=== PATIENT | female | born 2000 | race Caucasian/White ===

== ENCOUNTER 2020-05-04 11:27 | Emergency (ER) | payer OTHER, SELFPAY ==
--- NOTE | 2020-05-04 11:38 | ED.SKABFB ---
HPI - Skin/Abscess/Foreign Bdy General Chief complaint: Skin/Abscess/Foreign Body Stated complaint: pos spider bite Time Seen by Provider: 05/04/20 11:38 Source: patient and RN notes reviewed Mode of arrival: ambulatory Limitations: no limitations History of Present Illness HPI narrative: 20-year-old female presents with concern for red, painful area on her right upper thigh/buttock. Reports she may have gotten bit by a bug. Reports symptoms started approximately 1 week ago. Denies fever, malaise, body aches, nausea, vomiting, diarrhea, difficulty breathing, difficulty swallowing, swollen tongue, swollen lips. Denies drainage from the area. MD complaint: insect bite/sting Related Data Allergies Allergy/AdvReac Type Severity Reaction Status Date / Time Penicillins Allergy Hives Verified 05/04/20 11:43 Review of Systems Review of Systems: Narrative: CONSTITUTIONAL: Denies malaise, chills, sweats, or fever. ENT: Denies swollen tongue, swollen lips, difficulty swallowing CARDIOVASCULAR: Denies chest pain, palpitations, or edema. RESPIRATORY: Denies cough or dyspnea. GASTROINTESTINAL: Denies abdominal pain, nausea, vomiting, diarrhea SKIN: Reports red, tender area on right upper thigh for 1 week MUSCULOSKELETAL: Denies myalgia. All systems reviewed & are unremarkable except as noted in HPI and below PMFSH Social History Social History Gender identity (if verbalized by the patient): Female Comments At time of signature, agree with nursing past medical, surgical, social and family history. There is no relevant family history pertinent to the presenting complaint Exam Narrative: Exam Narrative: GENERAL: Well-appearing, well-nourished, and in no acute distress. HEAD: Normocephalic EYES: PERRLA, conjunctivae clear ENT: Mucous membranes moist. NECK: Supple. No lymphadenopathy. No jugular venous distension, thyromegaly, or carotid bruits. Carotids were easily palpable bilaterally. CHEST: No respiratory distress. Clear to auscultation. No bony deformities, no asymmetry. Speaks in full sentences. HEART: Regular rate and rhythm. No murmur heard. EXTREMITIES: Right lower extremity has normal range of motion, grossly normal strength and sensation. SKIN: Warm, dry. Approximately 5 cm area of erythema, induration, tenderness with no fluctuation, center scab, no drainage. NEURO: Alert and oriented x3. PSYCH: Normal mood and affect Course Course Emergency Course: Patient is aware of diagnosis, understands and agrees to treatment plan. Anticipatory guidance given. Patient agrees to follow-up as directed and is aware of reasons to seek care at the emergency department. Portions of this record may have been created with voice recognition software Vital Signs Vital signs: Vital Signs Temperature 98.6 F 05/04/20 11:42 Pulse Rate 96 05/04/20 11:42 Respiratory Rate 20 05/04/20 11:42 Blood Pressure 148/103 H 05/04/20 11:42 Pulse Oximetry 100 05/04/20 11:42 Temperature 98.6 F 05/04/20 11:42 Pulse Rate 96 05/04/20 11:42 Respiratory Rate 20 05/04/20 11:42 Blood Pressure 148/103 H 05/04/20 11:42 Pulse Oximetry 100 05/04/20 11:42 Reviewed. Patient has been instructed to follow up with her primary care provider within the next week regarding her elevated blood pressure today. MDM - Skin/Abscess/Foreign Bdy MDM Narrative Medical decision making narrative: Does not appear at this time to be erythema multiforme, bullous, SJS, TEN; no evidence at this time to suggest RMSF, endocarditis or Lyme disease; patient looks well, nontoxic and is tolerating oral intake; no neurologic signs or symptoms; no headache, photophobia or neck pain; afebrile; appropriate for initial outpatient treatment; discussed the importance of follow-up, patient agrees; question, viral exanthema, contact dermatitis, allergic dermatitis, eczema, urticaria, cellulitis, local reaction. No soft palate or uvula edema, no tongue, lip edema or oth
[2020-05-04 11:42] VITALS: BP 148/103; PULSE 96; RESP 20; TEMP 37; O2SAT 100
== END 2020-05-04 11:50 | disposition home or self-care (01) ==
PROVIDERS: Emergency Provider Nurse Practitioner; PCP Physician Assistant
DX: S30.860A Insect bite (nonvenomous) of lower back and pelvis, initial encounter (principal); W57.XXXA Bitten or stung by nonvenomous insect and other nonvenomous arthropods, initial encounter
CPT/HCPCS: 99213; G0463

== ENCOUNTER 2022-12-20 08:19 | Emergency (ER) | payer OTHER, SELFPAY ==
[2022-12-20 08:30] VITALS: BP 159/103; PULSE 112; RESP 18; TEMP 37.8; O2SAT 98
--- NOTE | 2022-12-20 08:44 | ED.GENADULT ---
HPI - General Adult General Chief complaint: Upper Respiratory Infection Stated complaint: cold cough Source: patient Mode of arrival: ambulatory Limitations: no limitations History of Present Illness HPI narrative: Patient presents for evaluation of sick symptoms for last week. Symptoms include sinus congestion, mucopurulent discharge from the nares, sore throat, wheezing, productive cough of yellow sputum. She denies any fever, chills, nausea, vomiting, diarrhea. 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 No personal history of COVID. She does not smoke. She tried taking ibuprofen and Mucinex for her symptoms. She took a home COVID test yesterday which was negative. Related Data Home Medications Medication Instructions Recorded Confirmed norgestimate-ethinyl estradiol 1 tablet PO DAILY 12/20/22 12/20/22 0.18 mg/0.215mg/0.25mg-35 mcg(28)tablet Allergies Allergy/AdvReac Type Severity Reaction Status Date / Time Penicillins Allergy Hives Verified 12/20/22 08:33 Review of Systems Review of Systems: CONSTITUTIONAL: Denies fever, chills, or sweats. EYES: Denies visual changes, redness, or discharge. ENT: Reports sinus congestion, mucopurulent discharge from the nares, sore throat CARDIOVASCULAR: Denies chest pain, palpitations, or edema. RESPIRATORY: Reports productive cough of yellow sputum with SOB. GASTROINTESTINAL: Denies abdominal pain, nausea, vomiting, or diarrhea. GENITOURINARY: Denies dysuria or hematuria. SKIN: Denies rash or itching. MUSCULOSKELETAL: Denies back pain, joint pain, or myalgia. NEUROLOGIC: Denies headache, numbness, dizziness, or weakness. PSYCHIATRIC: Denies anxiety or depression. [facility] Past Medical History Medical History No pertinent past medical history Surgical History Surgical History No pertinent past surgical history Family History Family History Mother Family history non-contributory Social History Social History Smoking status: Never smoker Substance use: never Living arrangements: with family Gender identity (if verbalized by the patient): Female Sexual Orientation (if Verbalized by the Patient): Straight or Heterosexual Spiritual care concerns: No Exam Narrative: GENERAL: Well-appearing, well-nourished, and in no acute distress. HEAD: Normocephalic, atraumatic. EYES: PERRLA and EOMI. ENT: Nares clear, no rhinorrhea or epistaxis. Mucous membranes moist. Oropharynx without tonsillar hypertrophy exudate or other lesions. There is posterior pharyngeal erythema. Bilateral TMs pearly loco nonbulging NECK: Supple. No adenopathy or masses. No carotid bruits or JVD CHEST: Clear to auscultation. No respiratory distress. No wheezes rales or rhonchi HEART: Regular rate and rhythm. No murmur heard. Normal peripheral pulses. ABDOMEN: Soft, nontender, nondistended, normal active bowel sounds. EXTREMITIES: Normal range of motion. No edema. SKIN: Warm, dry, no rash. NEURO: No focal deficits. Alert and oriented x3. PSYCH: Normal mood and affect. Course Course Emergency Course: This is a 22 old female who presented for evaluation of sick symptoms. She took a home COVID test yesterday which was negative. She meets criteria for ABRS based upon duration of times for which she has been symptomatic and quality of her nasal discharge. Will dc with doxycycline as she has a PCN allergy, as well as prednisone. Declined albuterol inhaler. Follow-up with primary provider. Go to the ER for worsening symptoms. Patient in agreement with plan of care Level of Care: Express Care Visit Vital Signs Vital signs: Vital Signs Temperature 37.8 C H 12/20/22 08:30 Pulse Rate 112 H 12/20/22 08:30
== END 2022-12-20 08:46 | disposition home or self-care (01) ==
PROVIDERS: Emergency Provider Nurse Practitioner
DX: J32.9 Chronic sinusitis, unspecified (principal)
CPT/HCPCS: 99213; G0463

== ENCOUNTER 2023-05-12 11:04 | Emergency (ER) | payer OTHER, SELFPAY ==
[2023-05-12 11:19] VITALS: BP 147/92; PULSE 58; RESP 16; TEMP 36.8; O2SAT 99
--- NOTE | 2023-05-12 11:25 | ED.FEMALEGU ---
HPI - Female Genitourinary General Chief complaint: Urogenital-Female Stated complaint: uti symptoms Time Seen by Provider: 05/12/23 11:25 Source: patient Mode of arrival: ambulatory Limitations: no limitations History of Present Illness HPI Narrative: 23-year-old female presents with complaint of urinary frequency, urgency, dysuria for 3-4 days. Afebrile. Denies nausea vomiting. Last menstrual period approximately 1 year ago. Has been taking [id number] azo to treat symptoms. recently got back from vacation in [place]. All systems reviewed and negative except as noted above. Related Data Home Medications Medication Instructions Recorded Confirmed norgestimate-ethinyl estradiol 1 tablet PO DAILY 12/20/22 05/12/23 0.18 mg/0.215mg/0.25mg-35 mcg(28)tablet Allergies Allergy/AdvReac Type Severity Reaction Status Date / Time Penicillins Allergy Hives Verified 05/12/23 11:23 Review of Systems Review of Systems: CONSTITUTIONAL: Denies fever, chills, or sweats. EYES: Denies visual changes, redness, or discharge. ENT: Denies rhinorrhea, congestion, sore throat, or otalgia. CARDIOVASCULAR: Denies chest pain, palpitations, or edema. RESPIRATORY: Denies cough or dyspnea. GASTROINTESTINAL: Denies abdominal pain, nausea, vomiting, or diarrhea. GENITOURINARY: Reports urgency, frequency, dysuria dysuria. Denies hematuria. SKIN: Denies rash or itching. MUSCULOSKELETAL: Denies back pain, joint pain, or myalgia. NEUROLOGIC: Denies headache, numbness, or weakness. PSYCHIATRIC: Denies anxiety or depression. All other systems reviewed are negative, except as documented in HPI. [facility] Past Medical History Medical History No pertinent past medical history Surgical History Surgical History No pertinent past surgical history Family History Family History Mother Family history non-contributory Social History Social History Smoking status: Never smoker Substance use: never Living arrangements: with family Gender identity (if verbalized by the patient): Female Sexual Orientation (if Verbalized by the Patient): Straight or Heterosexual Spiritual care concerns: No Comments At time of signature, agree with nursing past medical, surgical, social and family history. There is no relevant family history pertinent to the presenting complaint. Exam Narrative: GENERAL: This is a well-nourished, well-developed patient, in no apparent distress. HEAD: normocephalic, atraumatic. EYES: PERRL. Sclera clear/white. Vision is grossly intact. EARS: External ears normal NOSE: External nose normal NECK: Neck supple, non-tender without lymphadenopathy, masses or thyromegaly. CARDIOVASCULAR: Regular rate and rhythm without murmurs, gallops, or rubs. RESPIRATORY: Clear to auscultation. Breath sounds equal bilaterally. No wheezes, rales, or rhonchi. SKIN: warm, Dry, intact with no suspicious lesions or rash, good texture and turgor. NEURO: awake, alert, and oriented to person, place and time. There were no obvious focal neurologic abnormalities. EXTREMITIES: No joint tenderness, effusion, or edema noted. Course Course Level of Care: Express Care Visit Vital Signs Vital signs: Vital Signs Temperature 36.8 C 05/12/23 11:19 Pulse Rate 58 L 05/12/23 11:19 Respiratory Rate 16 05/12/23 11:19 Blood Pressure 147/92 H 05/12/23 11:19 Pulse Oximetry 99 05/12/23 11:19 Oxygen Delivery Room Air 05/12/23 11:19 Temperature 36.8 C 05/12/23 11:19 Pulse Rate 58 L 05/12/23 11:19 Respiratory Rate 16 05/12/23 11:19 Blood Pressure 147/92 H 05/12/23 11:19 Pulse Oximetry 99 05/12/23 11:19 Oxygen Delivery Room Air 05/12/23 11:19 review
== END 2023-05-12 11:34 | disposition home or self-care (01) ==
PROVIDERS: Emergency Provider Nurse Practitioner Family; PCP Physician Assistant
DX: N39.0 Urinary tract infection, site not specified (principal)
CPT/HCPCS: 81003; 87077; 87086; 87186; 99213; G0463

== ENCOUNTER 2023-11-17 15:51 | Outpatient (CLI) | payer OTHER, SELFPAY ==
--- NOTE | ~2023-11-17 | US_ITS ---
EXAMINATION: US OB <= 14 weeks fetus DATE: 11/17/2023 16:20 INDICATION: Encounter for screening for uncertain dates assess for viability during first t rimester . TECHNIQUE: Real-time pelvic ultrasound utilizing both a transvaginal and transabdominal probe was pe rformed. The interpreting radiologist was not present for the study. COMPARISON: None. FINDINGS: The uterus measures 10.2 x 6.5 x 6.8 cm. There is an intrauterine gestational sac. A yolk sac and fe dylan pole are identified. The crown rump length measures 2.6 cm, which correlates with an estimated ge stational age of 9 weeks and 2 days. heart motion is identified measuring 175 beats per minute (bpm) by M-mode Doppler. The right ovary measures 3.3 x 2.0 x 2.5 cm. The left ovary measures 3.3 x 1.9 x 2.1 cm. Vascular kaela w identified in both ovaries on color Doppler. There is no free fluid in the pelvis. IMPRESSION: 1. Single living fetus with heart of 175 bpm. 2. Gestational age by ultrasound of 9 weeks 2 day(s) +/- 6 day(s) with ultrasound estimated date of delivery (DULCE MARIA) of 06/19/2024. Reviewed, dictated and finalized at location A. [employer]URES IMPRESSION: 1. Single living fetus with heart of 175 bpm. 2. Gestational age by ultrasound of 9 weeks 2 day(s) +/- 6 day(s) with ultraso und estimated date of delivery (DULCE MARIA) of 06/19/2024.
== END 2023-11-17 15:52 ==
PROVIDERS: PCP Advanced Practice Midwife; Visit Provider Advanced Practice Midwife
DX: Z36.87 Encounter for antenatal screening for uncertain dates (principal); O36.80X0 Pregnancy with inconclusive fetal viability, not applicable or unspecified; Z3A.00 Weeks of gestation of pregnancy not specified
CPT/HCPCS: 76801

== ENCOUNTER 2024-01-20 15:53 | Outpatient (CLI) | payer OTHER, SELFPAY ==
--- NOTE | ~2024-01-20 | US_ITS ---
EXAMINATION: US OB /maternal detail DATE: 01/20/2024 16:33 INDICATION: anatomic survey. TECHNIQUE: Real-time ultrasound of the pelvis was performed. COMPARISON: Ultrasound 11/17/2023 FINDINGS: There is a single living fetus in vertex presentation. The placenta is posterior, 1.6 cm from the ce rvix. heart rate is 151 beats per minute (bpm). The cervical length is 3.0 cm on transabdominal images, which is normal. The amniotic fluid volume is subjectively normal. The following biometric data were obtained: Biparietal diameter (BPD): 3.9 cm; head circumference (HC): 15.3 cm; abdominal circumference (AC): 12 .4 cm; femur length (FL): 2.6 cm. These measurements are concordant. Estimated weight is 220 g +/- 33 g, which correlates with the 23rd percentile when 06/21/24 is u sed as estimated date of delivery. As single measurements, these parameters are each equal to the following estimated gestational ages: BPD: 18 weeks 0 days. HC: 18 weeks 2 days. AC: 18 weeks 0 days. FL: 18 weeks 0 days. estimated gestational age based solely on measurements from this exam is 18 weeks 1 days +/- 1 weeks 2 days. The cerebral ventricles, cerebellum, cisterna magna, nuchal fold, lip, and visualized portions of the spine are normal. The heart is normal. The diaphragm, stomach, kidneys, and bladder are normal. Ther e are two umbilical arteries to yield a 3-vessel cord. The cord insertion is normal. IMPRESSION: 1. Single living fetus in vertex presentation. 2. Estimated weight is 220 g +/- 33 g, which correlates with the 23rd percentile when 06/21/24 is used as estimated date of delivery. Note that estimated date of delivery based on the ultrasound f rom 11/17/2023 would be 06/19/24. 3. Normal anatomic survey. Reviewed, dictated and finalized at location E. IMPRESSION: 1. Single living fetus in vertex presentation. 2. Estimated weight is 220 g +/- 33 g, which correlates with the pe rcentile when 06/21/24 is used as estimated date of delivery. Note that estimate d date of delivery based on the ultrasound from 11/17/2023 would be 06/19/24. 3. Normal anatomic survey.
== END 2024-01-20 15:54 ==
LOC: MICIMG 15:54
PROVIDERS: PCP Obstetrics & Gynecology Gynecology; Visit Provider Obstetrics & Gynecology Gynecology
DX: Z36.9 Encounter for antenatal screening, unspecified (principal)
CPT/HCPCS: 76805

== ENCOUNTER 2024-02-25 10:20 | Outpatient (CLI) | payer BC, SELFPAY ==
--- NOTE | ~2024-02-25 | US_ITS ---
EXAMINATION: US OB limited DATE: 02/25/2024 10:40 INDICATION: Low-lying placenta TECHNIQUE: Real-time ultrasound of the pelvis was performed. The interpreting radiologist was not pre sent for the study. COMPARISON: 01/20/2024 FINDINGS: There is a single living fetus in vertex presentation. The placenta is posterior and not low-lying w ith caudal margin 7 cm from the region of the internal cervical os. The cervix is poorly visualized o n the transabdominal imaging with cervical length of approximately 3.5 cm. heart rate is 146 be ats per minute (bpm). The amniotic fluid volume is subjectively normal. IMPRESSION: 1. Single living fetus in vertex presentation with heart rate of 146 bpm. 2. Posterior placenta which is not low-lying with caudal margin 7 cm from the internal cervical os. Reviewed, dictated and finalized at location A. IMPRESSION: 1. Single living fetus in vertex presentation with heart rate of 146 bpm . 2. Posterior placenta which is not low-lying with caudal margin 7 cm from the i nternal cervical os.
== END 2024-02-25 10:21 ==
PROVIDERS: PCP Advanced Practice Midwife; Visit Provider Advanced Practice Midwife
DX: O44.42 Low lying placenta NOS or without hemorrhage, second trimester (principal)
CPT/HCPCS: 76815

== ENCOUNTER 2024-03-20 12:35 | Outpatient (RCR) | payer BC, SELFPAY ==
[2024-03-20 13:08] VITALS: BP 127/78; PULSE 87
== END 2024-06-18 23:59 | disposition home or self-care (01) ==
LOC: ANHOBOP 12:35
PROVIDERS: PCP Advanced Practice Midwife; Visit Provider Obstetrics & Gynecology Gynecology
DX: O36.8120 Decreased fetal movements, second trimester, not applicable or unspecified (principal); Z3A.27 27 weeks gestation of pregnancy
CPT/HCPCS: 59025

== ENCOUNTER 2024-06-20 21:35 | Inpatient (IN) | payer BC, SELFPAY ==
[2024-06-20 23:06] VITALS: PULSE 82; O2SAT 99
[2024-06-20 23:11] VITALS: PULSE 87; O2SAT 100
[2024-06-20 23:16] VITALS: PULSE 90; O2SAT 100
[2024-06-20 23:21] VITALS: PULSE 90; O2SAT 99
[2024-06-20 23:22] VITALS: TEMP 37.1
[2024-06-21] VITALS (173 sets, daily range): BP systolic 58–178; BP diastolic 24–99; PULSE 54–125; RESP 16–18; TEMP 36.9–37.4; O2SAT 82–100; BMI 36.8
[2024-06-21 00:14] LABS: Basophils Absolute Auto 0.1 K/mm3 (0.0-0.1); Basophils Percent Auto 0.3 % (0.2-1.2); Eosinophils Absolute Auto 0.1 K/mm3 (0-0.3); Eosinophils Percent Auto 0.5 % (0-4.4); Hematocrit 40.5 % (37.0-47.0); Hemoglobin 13.8 g/dL (12.0-15.0); Immature Granulocyte Absolute 0.47 K/mm3 (0.00-0.031); Immature Granulocyte Percent A 2.5 % (0-0.5); Lymphocytes Absolute Auto 2.82 K/mm3 (0.9-3.2); Lymphocytes Percent Auto 14.8 % (18.3-44.2); Mean Corpuscular HGB Conc 34.1 g/dl (32-36); Mean Platelet Volume 9.6 fl (7.4-10.4); Monocytes Absolute Auto 0.9 K/mm3 (0.1-0.6); Monocytes Percent Auto 4.6 % (2.6-8.5); Neutrophils Absolute Auto 14.8 K/mm3 (1.3-6.7); Neutrophils Percent Auto 77.3 % (45.5-73.1); Platelet Count Result 328 k/mm3 (150-375); Red Blood Count 4.45 M/mm3 (4.2-5.4); Red Cell Distribution Width 12.8 % (11.5-14.5); White Blood Count 19.1 K/mm3 (4.5-10.0)
[2024-06-21] MEDS: LACTATED RINGERS 1,000 ML 999 ML IV CONT ×2 (00:18→09:54)
[2024-06-21 01:01] LABS: HIV 1/2 Ab P24 Ag Result Negative (Negative)
[2024-06-21 01:56] LABS: Rapid Plasma Reagin Non-Reactive (NonReactive)
--- NOTE | 2024-06-21 02:34 | WPDANESEPP ---
Anes - Eval Pre Procedure Procedure: Labor Epidural Date/Time: 06/21/24 02:34 Surgeon: Reuben Preop Diagnosis: Labor Pain Pre Op Diagnosis: Contractions Patient Data Age: 24 Gender: F Height: Weight: Last Vital Signs Temp 37.1 C 06/20/24 23:22 Pulse 55 L 06/21/24 02:32 BP 104/53 L 06/21/24 02:32 Pulse Ox 98 06/21/24 02:29 Allergies Allergy/AdvReac Type Severity Reaction Status Date / Time Penicillins Allergy Hives Verified 05/29/24 14:28 Home Medications Medication Instructions Recorded Confirmed Type aspirin 81 mg tablet 81 mg PO DAILY 05/29/24 05/29/24 History cholecalciferol (vitamin D3) 125 125 mcg PO DAILY 05/29/24 05/29/24 History mcg (5,000 unit) tablet (Vitamin D3) ferrous sulfate 325 mg (65 mg 325 mg PO DAILY 05/29/24 05/29/24 History iron) tablet vits no.126-ferrous fum 1 tablet PO DAILY 05/29/24 05/29/24 History 28 mg iron-folic acid 800 mcg tablet (Classic ) Laboratory Tests 06/20/24 06/20/24 06/21/24 23:44 23:45 01:03 WBC 19.1 H K/mm3 (4.5-10.0) RBC 4.45 M/mm3 (4.2-5.4) Hgb 13.8 g/dL (12.0-15.0) Hct 40.5 % (37.0-47.0) MCV 91.0 fl (80-100) MCH 31.0 pg (26-34) MCHC 34.1 g/dl (32-36) RDW 12.8 % (11.5-14.5) Plt Count 328 k/mm3 (150-375) MPV 9.6 fl (7.4-10.4) Immature Gran % (Auto) 2.5 H % (0-0.5) Neut % (Auto) 77.3 H % (45.5-73.1) Lymph % (Auto) 14.8 L % (18.3-44.2) [place] % (Auto) 4.6 % (2.6-8.5) Eos % (Auto) 0.5 % (0-4.4) Baso % (Auto) 0.3 % (0.2-1.2) Lymph # (Auto) 2.82 K/mm3 (0.9-3.2) [place] # (Auto) 0.9 H K/mm3 (0.1-0.6) Eos # (Auto) 0.1 K/mm3 (0-0.3) Baso # (Auto) 0.1 K/mm3 (0.0-0.1) Abs Immat Gran (auto) 0.47 H K/mm3 (0.00-0.031) Absolute Neuts (auto) 14.8 H K/mm3 (1.3-6.7) Absolute Nucleated RBC 0.000 K/mm3 (0.0-0.012) Nucleated RBC % 0.0 % (0.0-0.2) RPR Non-reactive (NonReactive) HIV 1&2 Ab/P24 Ag 4thGn Negative (Negative) Blood Type A Positive Antibody Screen Negative : gestational age (DULCE MARIA 06/19/24, ) Patient hx anesthesia problems: none Family hx anesthesia problems: none Results Review: All pre-operative results and documents have been reviewed as part of the pre-operative evaluation. [facility] Past Medical History Medical History No pertinent past medical history Surgical History Surgical History No pertinent past surgical history Family History Family History Mother Family history non-contributory Social History Social History Smoking status: Never smoker Substance use: never Living arrangements: with family Gender identity (if verbalized by the patient): Female Sexual Orientation (if Verbalized by the Patient): Straight or Heterosexual Spiritual care concerns: No Exam Day of Procedure 06/21/24 02:34 Patient weight: normal Heart: regular rate and rhythm Lungs: normal air movement Airway: Mallampati scale class II Neurological: alert and oriented
--- NOTE | 2024-06-21 02:55 | LDADM ---
This patient, Daina Hough, was admitted to Labor/Delivery/Recovery 108 on 06/20/24 at 21:35. Plans for labor, pain management and were discussed with patient. Patient/family oriented to hospital policies and general routines including ID bracelet, bed and alarms, visiting hours, pain management, procedures, bathroom and other care routines, personal items, smoking policy, room service/diet and guest tray routines, infant security routines, and visiting hours. Patient/Family are encouraged to report perceived risks to care and to ask questions if they do not understand what they are told or what they should do. See OBIX for further documentation.
--- NOTE | 2024-06-21 07:49 | WPDOBADMIT ---
Obstetrics - Admit Note Admission Note: record reviewed. No pertinent additions to the history and/or any subsequent changes in the physical findings that are not consistent with the expected course of the were found. Additions to the history and/or subsequent changes in the physical findings follow. Admitted overnight after SROM at home.
--- NOTE | 2024-06-21 07:49 | PM.OBPNLAB ---
Pain Control Date/time seen: 06/21/24 0600 Comments: Sign out received from Dr. Alexis. Care assumed
--- NOTE | 2024-06-21 07:50 | PM.OBPNLAB ---
Pain Control Date/time seen: 06/21/24 07:30 Pain control: tolerating well and epidural Pelvic Exam Comments: 9 cm per RN exam. Contractions Monitor mode: External Contraction pattern: Regular Contraction intensity: Strong/Firm Status status: Category ll Comments: Reassured by moderate variability and accelerations. Assessment and Plan Assessment: active labor Plan: continuous present management Comments: Anticipate vaginal . Dr. Alexis updated.
[2024-06-21] MEDS: OXYTOCIN 30 UNITS/NS 500 ML 30 UNITS/500 ML BAG 999 UNITS IV CONT (10:43)
[2024-06-21] MEDS: OXYTOCIN 30 UNITS/NS 500 ML 30 UNITS/500 ML BAG 125 UNITS IV CONT (11:05)
--- NOTE | 2024-06-21 11:09 | PM.OBPRVD ---
OB - Vaginal Delivery Note Procedure Delivery date: 06/21/24 Induction method: None Delivery monitor: External FHT and External Uterine Route of delivery: Episiotomy description: None Laceration Description: Perineal - 2nd Degree and Labial (right) Delivery repair: vicryl Specimen: No Quantitative Blood Loss (ml): 250 Anesthesia type: Epidural Disposition: Floor Complications: No immediate complications Narrative: Daina Arrived from home after spontaneous rupture membranes. She had spontaneous contractions and changed her cervix to complete dilation. She pushed very well with contractions and brought the head to complete crown. With the next push the remainder of the head was delivered and a loose nuchal cord was identified. Excellent restitution was observed and both the anterior and spontaneous shoulders delivered easily. The nuchal cord was reduced and the was placed on the maternal abdomen and dried and stimulated by the nursery staff. After 1 minute of life, cord was doubly clamped and cut. Cord blood, cord gases, and cord segment were obtained. A second-degree perineal laceration that extended into the right labia was repaired in usual fashion. There was excellent hemostasis and uterine tone. All delivery counts correct. Mother and baby skin to skin in the delivery room. Baby Date of : 06/21/24 Time of : 10:37 Gestational Age by Date: 40 (40 weeks 2 days) Infant gender: Male Weight (pounds): 0 (unavailable at time of note) presentation: vertex position: Right Occiput Anterior Placenta delivery description: Spontaneous and Normal Configuration Cord Vessel Description: 3 Vessels, Nuchal Cord and Delayed Cord Clamping score one minute: 7 score five minutes: 9
--- NOTE | 2024-06-21 11:13 | PM.OBDSVD ---
DS: Admitting Diagnosis Discharge Date DC 06/23/[address] Alexis Admitting Diagnosis 24 y.o. at 40 weeks 2 days SROM Labor at term Rubella Non-Immune DS: Discharge Diagnosis Discharge Diagnosis (1) (normal spontaneous vaginal delivery): Code(s): O80 - Encounter for full-term uncomplicated delivery Status: Acute (2) Rubella non-immune status, delivered, current hospitalization: Code(s): O99.892 - Other specified diseases and conditions complicating childbirth; Z28.39 - Other underimmunization status Status: Acute Assessment and Plan: Plan MMR prior to DC (3) Patient is a currently breast-feeding mother: Code(s): Z39.1 - Encounter for care and examination of lactating mother Status: Acute OB - DS: Summary Hospital Course Hospital Course: Uncomplicated OB Procedures : Ultrasound OB Procedures Intrapartum: Spontaneous Vag Delivery OB Procedures: : Rubella lg Peripartum Data Delivery Method: Natural Vaginal Laceration Description: Perineal - 2nd Degree and Labial (right) Episiotomy description: None complications: none Time Spent with Patient Time attestation: Total time spent providing and/or coordinating discharge services: DS: Data Data Completed and Pending Labs on day of discharge: Labs from last 24 hours 06/21/24 06/20/24 06/20/24 01:03 23:45 23:44 WBC 19.1 H RBC 4.45 Hgb 13.8 Hct 40.5 MCV 91.0 MCH 31.0 MCHC 34.1 RDW 12.8 Plt Count 328 MPV 9.6 Immature Gran % (Auto) 2.5 H Neut % (Auto) 77.3 H Lymph % (Auto) 14.8 L Hughes % (Auto) 4.6 Eos % (Auto) 0.5 Baso % (Auto) 0.3 Lymph # (Auto) 2.82 Hughes # (Auto) 0.9 H Eos # (Auto) 0.1 Baso # (Auto) 0.1 Abs Immat Gran (auto) 0.47 H Absolute Neuts (auto) 14.8 H Absolute Nucleated RBC 0.000 Nucleated RBC % 0.0 RPR Non-reactive HIV 1&2 Ab/P24 Ag 4thGn Negative Blood Type A Positive Antibody Screen Negative Discharge Plan Discharge Attending physician on discharge: Melanie Alexis Consulting providers: Melody Pantoja; Annabella Denis Discharging Clinician: Melanie Alexis Anticipated Discharge Date/Time: 06/23/24 11:15 Patient Disposition: Home, Self-Care Activity: may shower and pelvic rest Diet: regular Discharge Instructions: Education: Mom and Baby Guide Given to: Mother Follow-Up: Call your delivering provider's office for an appointment to be seen in: 6 Weeks Mom and baby should come to the [facility] for the follow-up appointment. Appointment Date/Time: Monday, June 24, 2024 at 11:00 a.m. What to expect at your follow-up visit: Blood Pressure Check Physical Assessment Call [phone] if you are unable to keep your appointment time. BREAST CARE: * Wear a snug supportive bra. * For engorgement discomfort: Breast Feeding: * Apply warm moist washcloths * Express milk as needed to relieve engorgement * Wear loose clothing Bottle Feeding: * May apply ice packs * For sore nipples: * Identify correct latch-on * Apply warm moist washcloths before and after nursing * Air dry nipples after nursing * May apply Lansinoh cream to nipples EPISIOTOMY/PERINEAL CARE: * Until bleeding stops, use your claudine bottle after urinating * Change your pad frequently throughout the day * You may take sitz baths several times a day (fill your bathtub with warm water and soak for 20 minutes.) Do NOT bathe in the water * No tub baths until seen by your physician - You may shower ACTIVITY: * Rest as much as possible. * Do not exercise or lift anything heavier than your baby (such as laundry or other children.) * Avoid stairs or driving as much as possible. * Do not put anything into the vagina. No douching, tampons, or sexual activity unti
[2024-06-21] MEDS: ACETAMINOPHEN 325 MG TABLET 650 MG PO ×2 (12:06→18:45)
[2024-06-21] MEDS: IBUPROFEN 600 MG TABLET PO ×2 (12:06→18:45)
[2024-06-21] MEDS: BENZOCAINE 20% AER SPR (*SP) 56 GM CAN 1 SPRAY TOPICAL (13:05)
[2024-06-21] MEDS: WITCH HAZEL 40 PADS 1 PAD TOPICAL (13:05)
--- NOTE | 2024-06-21 13:35 | OBPPTRN ---
Patient transferred to post room #277 via wheelchair. Support person present. Oriented to unit, room, information board, rooming in, admission packet and security measures. Patient verbalizes understanding.
--- NOTE | 2024-06-21 15:35 | PC.NURSE ---
1420: To patient room to assist with . We put baby in cross cradle hold on the left but he would either cry or sleep. He tried to latch a few times before he stopped giving any feeding cues. Advised mom that we may just need to give him a little more time as he seems sleepy right now. Will try again in half hour to 30 minutes. 1535: Returned to patient room to assist with . Parents were trying to get baby to latch and he was very fussy. Mom was using the cross cradle hold appropriately and baby was trying to latch but he was not able to maintain the latch for more than one suck. Mom was agreeable to switch to the football position to see if it would assist with baby maintaining the latch better. Baby latched after a few tries and was suckling vigorously. He had frequent swallows and mom was taught how to listen for good swallowing and observe appropriate sucking. We thoroughly reviewed how to get and observe a deep latch. Baby alignment and positioning reviewed and mom was very receptive to the education shared. Encouraged mom to keep baby at the breast for as long as he likes, and then to try to burp and offer the other breast if baby is still showing feeding cues. Parents will call out for further assistance as needed. Reported to primary RN.
[2024-06-21] MEDS: DOCUSATE SODIUM 100 MG CAPSULE PO (16:12)
[2024-06-22] MEDS: ACETAMINOPHEN 325 MG TABLET 650 MG PO ×3 (00:47→18:59)
[2024-06-22] MEDS: IBUPROFEN 600 MG TABLET PO ×3 (00:48→18:59)
[2024-06-22 04:49] LABS: Hemoglobin 9.8 g/dL (12.0-15.0)
[2024-06-22 05:36] VITALS: BP 124/74; PULSE 87; RESP 18; TEMP 36.9
--- NOTE | 2024-06-22 07:48 | PM.OBPNVD ---
OB - PN: Subj Subjective Date/time seen: 06/22/24 07:48 Patient comments: no complaints and pain well controlled baby status: doing well OB - PN: Obj Data Labs 06/22/24 04:29 Labs: Laboratory Results - last 24 hr 06/22/24 04:29 Hgb 9.8 L D Hct 30.0 L OB - PN A/P Plan day: 1 Plan: routine care Time Spent With Patient Time: Total time spent is greater than 50% in coordination of care (as documented) at patient's floor/unit and/or counseling patient: Exam : Bimanual exam- vagina & uterus: other (Uterus firm, nt @U)
[2024-06-22 09:00] VITALS: BP 124/71; PULSE 77; RESP 16; TEMP 36.6; O2SAT 100
[2024-06-22] MEDS: DOCUSATE SODIUM 100 MG CAPSULE PO ×2 (09:37→17:20)
[2024-06-22] MEDS: CHOLECALCIFEROL 5,000 UNITS TABLET 5000 UNITS BY MOUTH (09:37)
[2024-06-22] MEDS: MULTIVIT/MIN/PREN/FOL AC/IRON TABLET 1 TAB PO (09:37)
[2024-06-22] MEDS: POLYSACCHARIDE IRON COMPLEX 150 MG CAPSULE PO ×2 (09:37→17:20)
[2024-06-22] MEDS: FERROUS SULFATE 325 MG TABLET DR BY MOUTH (09:37)
[2024-06-22 20:27] VITALS: BP 134/86; PULSE 102; RESP 18; TEMP 37.3
[2024-06-23] MEDS: IBUPROFEN 600 MG TABLET PO ×2 (00:40→09:52)
[2024-06-23] MEDS: ACETAMINOPHEN 325 MG TABLET 650 MG PO (00:40)
[2024-06-23 07:55] VITALS: BP 138/86; PULSE 77; RESP 18; TEMP 36.9; O2SAT 100
[2024-06-23 08:00] VITALS: PULSE 77; RESP 18; O2SAT 100
--- NOTE | 2024-06-23 09:11 | PC.NURSE ---
0650 Consulted with patient to assess needs related to . Baby had just breastfed @ 0600 for 15 minutes and is currently skin to skin with mother, very content and relaxed. Discussed with mother her successes, concerns and any questions she has. We reviewed working with the , supporting breast, protecting her nipples with an optimal deep latch, good positioning, and good hand washing. Encouraged understanding the benefits of skin to skin, responding to feeding cues, frequencies of feeding 8-12 times in 24 hours (approximately 2-3 hours), duration of feedings, milk production, intake/output feeding sheet and signs of adequate intake encouraging swallowing at the breast. Reviewed positioning and alignment, supporting breast, off-centered (asymmetrical latch) and leading with the chin with big, open, wide gape. Mother talked about her plans when returning home and going back to work, she plans on pumping and bottle feeding and does have her own breast pump at home. 0820 RN @ bedside, mother was able to optimally latch baby to the left breast in cross cradle position. Education given to the mother of how to visualize the suckling (with good rocking jaw motion) swallows (dropping of the lower jaw) and how to listen for drinking at the breast (the ka sound). The infant was able to maintain latch without discomfort to mother. Nipple care reviewed with optimal latch, good positioning and using clean hands when touching her breast. Resources used to facilitate learning were used from the visual handouts/ booklet and the mom and baby guide. Mother voiced understanding of the education shared, to call for assistance if the does not latch or if there is discomfort with . Reported to the Primary RN.
[2024-06-23] MEDS: CHOLECALCIFEROL 5,000 UNITS TABLET 5000 UNITS BY MOUTH (09:51)
[2024-06-23] MEDS: MULTIVIT/MIN/PREN/FOL AC/IRON TABLET 1 TAB PO (09:51)
[2024-06-23] MEDS: DOCUSATE SODIUM 100 MG CAPSULE PO (09:51)
[2024-06-23] MEDS: FERROUS SULFATE 325 MG TABLET DR BY MOUTH (09:51)
[2024-06-23] MEDS: POLYSACCHARIDE IRON COMPLEX 150 MG CAPSULE PO (09:52)
--- NOTE | 2024-06-23 12:38 | PM.OBPNVD ---
OB - PN: Subj Subjective Date/time seen: 06/23/24 12:38 Patient comments: no complaints and pain well controlled baby status: doing well OB - PN: Obj Data Labs 06/22/24 04:29 OB - PN A/P Plan day: 2 Plan: routine care, discharge home, follow up 6 weeks and other (micronor for bc) Time Spent With Patient Time: Total time spent is greater than 50% in coordination of care (as documented) at patient's floor/unit and/or counseling patient: Exam : Bimanual exam- vagina & uterus: other (Uterus firm, nt @U)
[2024-06-23] MEDS: MEASLES,MUMPS,RUBELLA VACCINE 0.5 ML VIAL SUB-Q (13:10)
--- NOTE | 2024-06-23 14:52 | PC.NURSE ---
1405. Patient's RN called to assist with feeding. Baby had last fed at 10:30, and was showing later hunger cues and frustration at the breast. Attempted with mom to get baby to breast a few times, baby became very frustrated and began continuously crying. Helped mom transition baby to s2s to calm him down and reset. Syringe fed baby 3mls of formula, then brought baby back to the breast to feed. He latched optimally in the football hold to the R breast and began rhythmically suckling. Reviewed with mom and dad how to identify early feeding cues. Reviewed with mom how to assertively bring baby to the breast to help baby get a deep latch. Mom and dad verbalized understanding of education and agreed to call out for more assistance if needed.
[2024-06-24 10:16] VITALS: BP 134/86; PULSE 82; RESP 20; TEMP 36.9; O2SAT 99
== END 2024-06-23 15:38 | disposition home or self-care (01) | DRG 807 ==
LOC: ANHLDR 06-21 11:16 → ANHOB2 06-21 13:37
PROVIDERS: Admitting Provider Obstetrics & Gynecology Gynecology; PCP Physician Assistant; Referring Provider Advanced Practice Midwife; Visit Provider Obstetrics & Gynecology Gynecology
DX: O69.81X0 Labor and delivery complicated by cord around neck, without compression, not applicable or unspecified (principal); Z37.0 Single live birth; Z3A.40 40 weeks gestation of pregnancy; O70.1 Second degree perineal laceration during delivery
CPT/HCPCS: 36415; 85014; 85018; 85025; 86592; 86703; 86850; 86900; 86901; 90710; A9270; G0432; J2590; J7120

== ENCOUNTER 2024-06-27 13:30 | Outpatient (RCR) | payer BC, SELFPAY ==
--- NOTE | 2024-06-27 13:40 | PC.NURSE ---
In- 1340 Out- 1440 Reason for visit: Nipple shield use; infant weight loss 9% at follow up on 06/24 (gained at pedi appt. today) History: Daina delivered baby Mateo at 40 weeks and 2 days gestation. She mostly breastfed in the hospital with formula supplementation on night 2. Mom went home exclusively , and at the follow up on Sunday 06/24, baby had lost 9% of his weight. The follow up RN gave mom a nipple shield to help latch baby to her engorged breast and baby was able to breastfeed with the shield. Over the weekend, baby had formula/breastmilk in a bottle a few times but mostly fed at the breast with the shield. Daina did struggle a few times with getting baby to latch to the shield so we spoke over the phone and she was able to apply some milk to the shield and in baby's mouth to entice him to feed. Her main concerns today are making sure baby is nursing effectively with the shield, and trying to wean from the nipple shield. History: Mateo is gaining weight while feeding mostly at the breast. Mom's milk is in and he is able to latch well without discomfort to mother with the shield. He has been having adequate output, his stools are still brown and transitional. Mom and dad know to expect yellow seedy stools in the next day or so. Observations: Mother latches infant to the nipple shield well (we used the 24mm shield on the R, and tried the 20mm on the L, but switched to the 24mm on the L when didn't seem to be swallowing as frequently). Instructed mother on turning the shield partly inside out before applying it to assist with drawing the nipple into the shield. Encouraged chin close to breast and not allowing the shield to slide in and out of baby's mouth. We tried to remove the shield and latch without it, and will latch and suck once or twice and then release the breast. We reapplied the shield and baby completed the feeding with 1:1 suck/swallow on the right breast with heavy gulping. He nursed on the right side for 18 minutes and the left breast for 25 minutes. His suck/swallow on the left breast was better with the 24 mm shield (3:1) than the 20mm shield (5-6:1). There was copious milk in the shield when baby was done nursing. weight: 8 # 4 Lowest weight: down 9% on 06/24 Last weight: 7 # 14 (at pedi office today 06/27) Plan of Care: Parents provided with lots of education regarding nipple zuniga, how to wean, how to use safely, risks associated with nipple zuniga and how to monitor for infant swallows, satisfaction, output, and how to add pumping in until infant is gaining weight well and feeding proficiently at the breast. Mom has been anxious about using the shield because of the risks for low milk supply, but we discussed how to use safely, while still trying to wean off with practice and patience. Follow up plans: Anneliese have an appointment to see [employer] this week and are going to continue to work on effective and consistent nursing with the nipple shield, as well as pumping to ensure mom establishes a good milk supply. Encouraged mom to call if she gets home and has any further problems with the shield or with pumping. Mom and dad both affirmed that the appointment was helpful and they feel more confident to go home and continue .
== END 2024-09-25 23:59 | disposition home or self-care (01) ==
LOC: ANHOBOP 13:30
PROVIDERS: PCP Physician Assistant; Visit Provider Pediatrics
DX: Z39.1 Encounter for care and examination of lactating mother (principal)
CPT/HCPCS: 99202; G0463